=== PATIENT | male | born 1945 | race African-American/Black ===

== ENCOUNTER 2018-10-28 15:08 | Emergency (ER) | payer MEDICARE, OTHER ==
[2018-10-28 15:28] VITALS: BMI 40.3
[2018-10-28] MEDS ORDERED: SODIUM CHLORIDE 0.9% 1000 ML INFUS.BAG IV ONE (16:17)
[2018-10-28] MEDS ORDERED: METOCLOPRAMIDE HCL INJECTION 10 MG/2 ML VIAL IVPB ONE (16:17)
[2018-10-28] MEDS ORDERED: ACETAMINOPHEN 1000 MG/100 ML VIAL (NON FORMULARY) IVPB ONE (16:17)
--- NOTE | 2018-10-28 16:46 | PDOC ---
History of Present Illness - General Chief Complaint: Headache Stated Complaint: HEAD PAIN Time Seen by Provider: 10/28/18 15:40 - History of Present Illness Initial Comments: 10/28/18 16:47 73Y/O M with hx of hypercholesterolemia, HTN, GERD presents to the ED with 1 wk hx of intermittent headache. Pain starts in center of his head and radiates down his left side to his jaw, and to the right to his upper ear. he describes it as throbbing pain/pressure.He denies a hx of stroke in the past or previous hx of CT. Predominant complains are leftsided leg weakness, lightheadedness and increased effort with ambulation He denies any falls, head trauma, loss of consciousness fevers, chiils, blurry vision or hearing changes. Has complaints of post-nasal drip but endorses suffering from allergies and hasn't taken Zyrtec in 2weeks. 10/28/18 18:39 Past History - Past Medical History Allergies/Adverse Reactions: Allergies Allergy/AdvReac Type Severity Reaction Status Date / Time No Known Allergies Allergy Verified 10/28/18 15:24 Home Medications: Ambulatory Orders Aspirin [ASA -] 81 mg PO DAILY 10/28/18 Pantoprazole Sodium 40 mg PO DAILY 10/28/18 Prazosin HCl 1 mg PO DAILY 10/28/18 Rosuvastatin [Crestor -] 20 mg PO HS 10/28/18 Tamsulosin HCl 0.4 mg PO HS 10/28/18 Anemia: No Asthma: No Cancer: No Cardiac Disorders: No CVA: No COPD: No CHF: No Dementia: No Diabetes: No GI Disorders: Yes (GERD) Disorders: Yes (CYST) HTN: Yes Hypercholesterolemia: Yes Liver Disease: No Seizures: No Thyroid Disease: No - Surgical History Orthopedic Surgery: Yes (Right Femur-PINS) - Suicide/Smoking/Psychosocial Hx Smoking Status: No Smoking History: Never smoked Years of Tobacco Use: 0 Have you smoked in the past 12 months: No Number of Cigarettes Smoked Daily: 0 Cigars Per Day: 0 Hx Alcohol Use: Yes (socially) Drug/Substance Use Hx: No Substance Use Type: Alcohol Hx Substance Use Treatment: No Review of Systems - Review of Systems All Other Systems: Reviewed and Negative (see hpi) *Physical Exam - Vital Signs Last Vital Signs Temp Pulse Resp BP Pulse Ox 98.4 F 76 16 149/73 100 07/07/19 15:24 10/28/18 15:24 10/28/18 15:24 10/28/18 15:24 10/28/18 15:24 - Physical Exam General Appearance: Yes: Nourished, Appropriately Dressed. No: Apparent Distress HEENT: positive: EOMI, BONITA, Normal Voice, Hearing Grossly Normal. negative: Photophobia, Sinus Tenderness, Hearing Decreased Respiratory/Chest: positive: Lungs Clear, Normal Breath Sounds. 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 negative: Motor Strength 5/5 (5/5 strength right upper and lower extremity. 4/ 5 strenght left lower extremity), Abnormal Cranial NS, Facial Droop, Numbness, Sensory Deficit, Confused, Depressed Affect ED Treatment Course - LABORATORY CBC & Chemistry Diagram: 10/28/18 16:50 10/28/18 16:50 Medical Decision Making - Medical Decision Making 10/28/18 16:34 73Y/O M with hx of hypercholesterolemia, HTN, GERD presents to the ED with 1 wk hx of intermittent headache. Labs/Imaging NiHSS score: 2 EKG, Head Ct w/o contrast, cardia enzymes, cbc, cmp Tylenol and Reglan for pain Iv normal saline (1000ml) 10/28/18 18:47 Troponin of 0.4. However due to head CT results, transfer to [facility] takes priority head Ct showed subdural hematoma with midline shift. Arranging for transfer to [facility]. Senior resident discussed with Dr. Dietrich at [facility] about transfer. Pt stable for transfer. consent signed. Dr. Dietrich has accepted patient. 10/28/18 19:03 *DC/Admit/Observation/Transfer Diagnosis at time of Disposition: Subdural hematoma - Discharge Dispostion Disposition: TRANSFER ACUTE CARE/OTHER HOSP Condition at time of disposition: Guarded Decision to Admit order: No - Referrals Referrals: Remberto Carney MD [Primary Care Provider] - - Patient Instructions - Post Discharge Activity - Transfer to Acute Care Facility Receiving Facility: [facility]. Accepting Physician:: Dr. Dietrich
[2018-10-28 17:22] LABS: BASO % 1.2 % (0-2.0); HEMATOCRIT 46.5 % (35.4-49); HEMOGLOBIN 14.8 GM/dL (11.7-16.9); LYMPH % 46.8 % (8-40); MCH 28.4 pg (25.7-33.7); MCHC 31.9 g/dl (32.0-35.9); MEAN CELL VOLUME 89.2 fl (80-96); MEAN PLT VOLUME 9.5 fl (7.5-11.1); PLATELET COUNT 180 K/MM3 (134-434); RBC 5.22 M/mm3 (4.00-5.60); RDW 15.1 % (11.9-15.9); WHITE BLOOD COUNT 5.7 K/mm3 (4.0-10.0)
[2018-10-28 17:44] LABS: ALBUMIN 3.8 g/dl (3.4-5.0); BILIRUBIN,TOTAL 0.3 mg/dL (0.2-1); BLOOD UREA NITROGEN 19.1 mg/dL (7-18); CALCIUM 9.5 mg/dL (8.5-10.1); CREATININE 1.2 mg/dL (0.55-1.3); POTASSIUM 4.2 mmol/L (3.5-5.1); TOT PROT 7.7 g/dl (6.4-8.2)
[2018-10-28] MEDS ORDERED: METOCLOPRAMIDE HCL INJECTION 10 MG/2 ML VIAL ONE (17:47)
[2018-10-28] MEDS ORDERED: ACETAMINOPHEN INJECTION 100 ML IVPB ONE (17:47)
--- NOTE | 2018-10-28 17:50 | PDOC ---
Documentation entered by Mikaela Rick SCRIBE, acting as scribe for Bhakti Marr DO. Bhakti Marr DO: This documentation has been prepared by the Prabhjot cason Nirvannie, SCRIBE, under my direction and personally reviewed by me in its entirety. I confirm that the documentation accurately reflects all work, treatment, procedures, and medical decision making performed by me. Attending Attestation - Resident Resident Name: LissettSirisha - ED Attending Attestation I have performed the following: I have examined & evaluated the patient, The case was reviewed & discussed with the resident, I agree w/resident's findings & plan - HPI HPI: 10/28/18 17:12 The patient is a 73 year old male, with a significant past medical history of GERD and HTN, who presents to the emergency department with, 1 week of intermittent headaches and new onset left sided weakness. As per patients daughter at bedside, yesterday she noticed him leaning on his left side. He endorses seasonal allergies which he has been noncompliant with his Zyrtec x2 weeks.He denies any recent chest pain or shortness of breath. Allergies: NKDA Past surgical history: None reported. Social History: Nonsmoker. Denies EtOH use and recreational drug use. Primary Care Physician: Dr. Remberto Carney Urologist: Dr. Danika Carney - Physicial Exam PE: 10/28/18 17:13 Constitutional: Awake, alert, oriented. No acute distress. Head: + Left mastoid tenderness. Normocephalic. Eyes: PERRL. EOMI. Conjunctivae are not pale. ENT: Mucous membranes are moist and intact. Posterior pharynx without exudates or erythema. Uvula midline. Neck: Supple. Full ROM. No lymphadenopathy. Cardiovascular: Regular rate. Regular rhythm. S1, S2 regular. Distal pulses are 2+ and symmetric. Pulmonary/Chest: No evidence of respiratory distress. Clear to auscultation bilaterally No wheezing, rales or rhonchi. Abdominal: Soft and non-distended. There is no tenderness. No rebound, guarding or rigidity. No organomegaly. No palpable masses. Good bowel sounds. Back: No CVA tenderness. Musculoskeletal: No edema. No cyanosis. No clubbing. Full range of motion in all extremities. No calf tenderness. Radial/pedal pulses are intact and 2+ bilaterally Skin: Skin is warm and dry. No petechiae. No purpura. Neurological: Alert and oriented to person, place, and time. Cranial nerves II -XII are grossly intact. Normal speech. Strength is grossly symmetric. No sensory deficits. Psychiatric: Good eye contact. Normal interaction, affect and behavior. - Critical Care Time Total Critical Care Time: 45 Critical Care Statement: The care of this patient involved high complexity decision making to prevent further life threatening deterioration of the patient 's condition and/or to evaluate & treat vital organ system(s) failure or risk of failure. - Medical Decision Making 10/28/18 17:41 I, Dr. Bhakti Marr, DO, attest that this document has been prepared under my direction and personally reviewed by me in its entirety. I further attest, that it accurately reflects all work, treatment, procedures and medical decision -making performed by me. 10/28/18 17:41 a/p: 73yo male with 1 week of headache and L sided weakness -walks leaning to the L, no falls -no focal neuro findings on exam incuding heel/wilks -pt denies cp/sob or fever -feels drainage down his neck and has pain behind his ear - pain over mastoid -will send labs, head ct, temporal bones ct -no frontal or maxillary sinus ttp -will medicate and re-examine 10/28/18 17:[address] on tele monitoring 10/28/18 17:[address] pending, will hold asa pending ct head findings 10/28/18 18:39 pt with subdural hematoma with midline shift on prelim read family and patient updated discussed with Dr. Rizvi who recommends transfer as he will benefit from possible drainage discussed with the family who requests transfer to [facility] pending call back from neurosx 10/28/18 18:46 resident discussed the case with neurosx at [facility] Dr. Gil Heart Score/ECG Review - ECG Intrepretation Comment:: 10/28/18 17:49 sinus at 70, 1st degree av block, t wave inversions III and avf, lateral lead t wave inversions that are unchanged from 2015
[2018-10-28] MEDS ORDERED: METOPROLOL TARTRATE 5 MG/5 ML VIAL IVPUSH ONE (18:37)
[2018-10-28 20:21] VITALS: BP 166/84; PULSE 67
[2018-10-28 20:24] VITALS: TEMP 98.6
[2018-10-28] MEDS ORDERED: morphine CARPU-JECT 2 MG/1 ML DISP.SYRIN IVPUSH ONE (20:32)
[2018-10-28] MEDS ORDERED: MORPHINE SULFATE 2 MG/ML VIAL ONE (20:33)
--- NOTE | 2018-10-29 11:24 | EKG ---
Test Reason : Blood Pressure : / mmHG Vent. Rate : 070 BPM Atrial Rate : 070 BPM P-R Int : 224 ms QRS Dur : 110 ms QT Int : 408 ms P-R-T Axes : 034 -27 -80 degrees QTc Int : 440 ms SINUS RHYTHM WITH 1ST DEGREE A-V BLOCK T WAVE ABNORMALITY, CONSIDER INFEROLATERAL ISCHEMIA ABNORMAL ECG WHEN COMPARED WITH ECG OF 17-FEB-2015 11:01, COMPARED TO EKG NO SIGNIFICANT CHANGE IS FOUND Confirmed by DEB DALE MD ([id number]) on 10/29/2018 11:24:16 AM Referred By: Confirmed By:DEB DALE MD
== END 2018-10-28 20:39 | disposition short-term general hospital (02) ==
LOC: JER 15:08
PROC: 3E0337Z Introduction of Electrolytic and Water Balance Substance into Peripheral Vein, Percutaneous Approach (ICD-10-PCS; principal; 2018-10-28)
PROC: 3E033GC Introduction of Other Therapeutic Substance into Peripheral Vein, Percutaneous Approach (ICD-10-PCS; 2018-10-28)
PROC: 3E033NZ Introduction of Analgesics, Hypnotics, Sedatives into Peripheral Vein, Percutaneous Approach (ICD-10-PCS; 2018-10-28)
DX: S06.5X9A Traumatic subdural hemorrhage with loss of consciousness of unspecified duration, initial encounter (principal); X58.XXXA Exposure to other specified factors, initial encounter; Y93.89 Activity, other specified; Y92.89 Other specified places as the place of occurrence of the external cause; I10 Essential (primary) hypertension; E78.00 Pure hypercholesterolemia, unspecified
CPT/HCPCS: 36415; 70450-TC; 70480-TC; 80053; 82550; 82553; 84484; 85025; 93005; 93010; 96374; 96375; 99284-25; J0131; J7030

== ENCOUNTER 2020-07-31 04:46 | Day surgery (SDC) | payer BC, OTHER ==
[2020-07-28 16:45] VITALS: BMI 36.4
[~2020-07-31 04:46] MED LIST: ceFAZolin SODIUM 1 GM VIAL IVPB ONE
[2020-07-31] MEDS ORDERED: PROPOFOL 20 ML ONE (11:47)
[2020-07-31] MEDS ORDERED: ceFAZolin SODIUM 1 GM VIAL IVPB ONE (12:45)
[2020-07-31] MEDS ORDERED: ceFAZolin SODIUM 1 GM VIAL ONE ×2 (12:46)
[2020-07-31] MEDS ORDERED: ZOLPIDEM TARTRATE 5 MG TABLET PO PRN (13:57)
[2020-07-31] MEDS ORDERED: ACETAMINOPHEN 325 MG TABLET (FP) PO PRN (13:57)
[2020-07-31] MEDS ORDERED: TAMSULOSIN HCL 0.4 MG CAP PO ONE ×2 (13:57→22:00)
[2020-07-31] MEDS ORDERED: CEPHALEXIN MONOHYDRATE 500 MG CAPSULE (UD) PO SCH (14:00)
[2020-07-31] MEDS ORDERED: oxyCODONE HCL 5 MG TABLET PO PRN ×2 (14:01→14:13)
[2020-07-31] MEDS ORDERED: ONDANSETRON 4 MG/2 ML VIAL IVPUSH PRN (14:01)
[2020-07-31] MEDS ORDERED: LACTATED RINGERS SOLUTION 1,000 ML IV SCH (14:15)
[2020-07-31] MEDS: DEXTROSE 5%-0.45% SALINE 1,000 ML IV SCH (19:09)
[2020-07-31] MEDS: ACETAMINOPHEN 325 MG TABLET (FP) PO PRN (20:51)
[2020-07-31] MEDS ORDERED: ROSUVASTATIN CA 20 MG TABLET (FP) PO SCH (22:00)
[2020-08-01] MEDS: ACETAMINOPHEN 325 MG TABLET (FP) PO PRN (01:35)
[2020-08-01] MEDS ORDERED: TRIMETHOBENZAMIDE HCL 200MG/2ML INJ IM ONE (01:55)
[2020-08-01] MEDS: DEXTROSE 5%-0.45% SALINE 1,000 ML IV SCH (07:03)
[2020-08-01] MEDS ORDERED: PT OWN MED DRAWER 7, Y5N ONE ×2 (07:40→11:35)
[2020-08-01] MEDS: CEPHALEXIN MONOHYDRATE 500 MG CAPSULE (UD) PO SCH ×2 (07:49→13:16)
[2020-08-01] MEDS ORDERED: LOSARTAN 50MG/HCTZ 12.5MG 1 TAB PO SCH (10:00)
[2020-08-01] MEDS ORDERED: PANTOPRAZOLE 40 MG TABLET PO SCH (10:00)
[2020-08-01 13:36] VITALS: BP 127/57; PULSE 104; TEMP 99.4
== END 2020-08-01 13:53 | disposition home or self-care (01) ==
LOC: JASUSAT 04:46 → JASU-SURG 04:46 → J5S 18:28 → JASUSAT 08-01 13:53
PROVIDERS: ATTEND Urology
PROC: 0VT08ZZ Resection of Prostate, Via Natural or Artificial Opening Endoscopic (ICD-10-PCS; principal; 2020-07-31 11:00)
DX: N40.1 Benign prostatic hyperplasia with lower urinary tract symptoms (principal); N32.89 Other specified disorders of bladder; N13.8 Other obstructive and reflux uropathy; R35.0 Frequency of micturition; R39.15 Urgency of urination
CPT/HCPCS: 87086; 88108; 88305-TC; 94760

== ENCOUNTER 2021-11-01 07:43 | Inpatient (IN) | payer BC, OTHER ==
[2021-11-01 09:10] LABS: VENOUS O2 SATURATION 90.8 % (70-80); VENOUS PCO2 43.4 mmHg (38-52); VENOUS PH 7.453 (7.310-7.410)
[2021-11-01 09:23] LABS: EPI CELLS 23 /uL (0-25.1); HYALINE CASTS 4 /uL (0-3.1); URINE APPEARANCE CLEAR; URINE BACTERIA 5 /uL (0-1359); URINE BILIRUBIN NEGATIVE (NEGATIVE); URINE COLOR YELLOW; URINE GLUCOSE (UA) 3+ (NEGATIVE); URINE KETONE TRACE (NEGATIVE); URINE LEUK ESTERASE 1+ (NEGATIVE); URINE NITRITE NEGATIVE (NEGATIVE); URINE PROTEIN 1+ (NEGATIVE); URINE UROBILINOGEN 0.2 mg/dL (0.2-1.0); URINE WBC 452 /uL (0-25.8)
[2021-11-01 09:25] LABS: BASO % 0.4 % (0-2.0); EOS % 0.1 % (0-4.5); HEMATOCRIT 47.8 % (35.4-49); HEMOGLOBIN 15.6 GM/dL (11.7-16.9); LYMPH % 10.1 % (8-40); MCH 28.4 pg (25.7-33.7); MCHC 32.7 g/dl (32.0-35.9); MEAN CELL VOLUME 86.9 fl (80-96); MEAN PLT VOLUME 8.8 fl (7.5-11.1); MONO % 7.8 % (3.8-10.2); NEUT % 81.6 % (42.8-82.8); PLATELET COUNT 132 10^3/uL (134-434); RBC 5.49 M/mm3 (4.00-5.60); RDW 15.9 % (11.9-15.9); WHITE BLOOD COUNT 6.9 K/mm3 (4.0-10.0)
[2021-11-01 09:35] LABS: INR 1.19 (0.83-1.09); PROTHROMBIN TIME (PATIENT) 13.7 SEC (9.7-13.0)
[2021-11-01 09:38] LABS: ACTIVATED PTT 28.6 SECONDS (25.2-36.5)
[2021-11-01 09:44] LABS: CHLORIDE 98 mmol/L (98-107); SODIUM 136 mmol/L (136-145)
[2021-11-01 09:48] LABS: CALCIUM 8.6 mg/dL (8.5-10.1); CO2 29 mmol/L (21-32); GLUCOSE,RANDOM 148 mg/dL (74-106)
[2021-11-01 09:51] LABS: CREATININE 1.4 mg/dL (0.55-1.3); SGOT/AST 39 U/L (15-37); SGPT/ALT 40 U/L (13-61)
[2021-11-01 09:52] LABS: BILIRUBIN,TOTAL 0.7 mg/dL (0.2-1)
[2021-11-01 09:53] LABS: ALK PHOS 68 U/L (45-117)
[2021-11-01 10:13] LABS: ANION GAP 9 MMOL/L (8-16)
[2021-11-01 10:19] LABS: URINE RBC 352.6 /uL (0-23.9); YEAST NEGATIVE (NEGATIVE)
[2021-11-01] MEDS ORDERED: POTASSIUM CHLORIDE ORAL LIQUID 20 MEQ/15 ML PO ONE (10:38)
[2021-11-01] MEDS ORDERED: KCL 10 MEQ IVPB 10 MEQ/100 ML INFUS.BAG IVPB SCH (10:45)
[2021-11-01] MEDS ORDERED: POTASSIUM CHLORIDE ORAL LIQUID 20 MEQ/15 ML ONE (10:48)
[2021-11-01] MEDS ORDERED: CEFTRIAXONE 1 GM in DEXTROSE 5%-WATER - 50 ML IVPB ONE (17:30)
[2021-11-01] MEDS ORDERED: CEFTRIAXONE 1 GM/50 ML BAG ONE (18:05)
[2021-11-01] MEDS: ROSUVASTATIN CA 20 MG TABLET PO SCH (21:50)
[2021-11-01] MEDS: HEPARIN NA (PORCINE) 5,000 UNITS/ML 1ML VIAL SQ SCH (21:50)
[2021-11-01 22:11] LABS: CHLORIDE 102 mmol/L (98-107); SODIUM 140 mmol/L (136-145)
[2021-11-01 22:13] LABS: ANION GAP 7 MMOL/L (8-16); BLOOD UREA NITROGEN 18.4 mg/dL (7-18); CALCIUM 8.3 mg/dL (8.5-10.1); CO2 31 mmol/L (21-32); GLUCOSE,RANDOM 141 mg/dL (74-106)
[2021-11-01 22:16] LABS: CREATININE 1.2 mg/dL (0.55-1.3)
[2021-11-01] MEDS: ACETAMINOPHEN 325 MG TABLET (FP) PO PRN (22:59)
[2021-11-01] MEDS: ASPIRIN COATED 81 MG TABLET.EC PO SCH (22:59)
[2021-11-02 04:05] VITALS: BMI 37.9
[2021-11-02] MEDS: ACETAMINOPHEN 325 MG TABLET (FP) PO PRN (06:02)
[2021-11-02 09:21] LABS: BASO % 0.5 % (0-2.0); EOS % 0.2 % (0-4.5); HEMATOCRIT 46.6 % (35.4-49); HEMOGLOBIN 15.3 GM/dL (11.7-16.9); LYMPH % 17.3 % (8-40); MCH 28.3 pg (25.7-33.7); MCHC 32.9 g/dl (32.0-35.9); MEAN CELL VOLUME 86.1 fl (80-96); MEAN PLT VOLUME 8.5 fl (7.5-11.1); MONO % 12.7 % (3.8-10.2); NEUT % 69.3 % (42.8-82.8); PLATELET COUNT 147 10^3/uL (134-434); RBC 5.41 M/mm3 (4.00-5.60); RDW 15.9 % (11.9-15.9); WHITE BLOOD COUNT 6.4 K/mm3 (4.0-10.0)
[2021-11-02] MEDS: ASPIRIN COATED 81 MG TABLET.EC PO SCH (09:27)
[2021-11-02] MEDS: LOSARTAN POTASSIUM 25 MG TABLET PO SCH (09:27)
[2021-11-02] MEDS: TAMSULOSIN HCL 0.4 MG CAP PO SCH (09:27)
[2021-11-02] MEDS: HEPARIN NA (PORCINE) 5,000 UNITS/ML 1ML VIAL SQ SCH ×2 (09:27→21:16)
[2021-11-02] MEDS: PANTOPRAZOLE 40 MG TABLET PO SCH (09:27)
[2021-11-02 09:53] LABS: ALBUMIN 2.9 g/dl (3.4-5.0); BLOOD UREA NITROGEN 17.2 mg/dL (7-18)
[2021-11-02 09:55] LABS: BILIRUBIN,TOTAL 0.8 mg/dL (0.2-1); TOT PROT 6.9 g/dl (6.4-8.2)
[2021-11-02 09:57] LABS: CALCIUM 8.4 mg/dL (8.5-10.1); CREATININE 1.1 mg/dL (0.55-1.3)
[2021-11-02] MEDS ORDERED: PNEUMOC 20-VAL CONJ-DIP CRM/PF 0.5 ML SYRINGE IM ONE (10:00)
[2021-11-02 13:38] LABS: MAGNESIUM 2.2 mg/dL (1.8-2.4)
[2021-11-02] MEDS ORDERED: POTASSIUM CHLORIDE TABS 20 MEQ TABLET.ER (FP) PO ONE (13:46)
[2021-11-02 14:02] LABS: PHOSPHOROUS 2.4 mg/dL (2.5-4.9)
[2021-11-02 14:07] LABS: N-TERMINAL BNP 384.9 pg/ml (5-450)
[2021-11-02] MEDS ORDERED: DEXTROSE 5%-WATER - 50 ML IVPB ONE (17:02)
[2021-11-02] MEDS ORDERED: PIPERACILLIN/TAZOBACTAM 3.375 GM VIAL IVPB ONE (17:02)
[2021-11-02] MEDS: PIPERACILLIN/TAZOB 3.375 GM 3.375 GM in DEXTROSE 5%-WATER - 50 ML IVPB SCH (17:14)
[2021-11-02] MEDS: ROSUVASTATIN CA 20 MG TABLET PO SCH (21:16)
[2021-11-03] MEDS ORDERED: PIPERACILLIN/TAZOBACTAM 3.375 GM VIAL IVPB ONE ×3 (00:54→17:35)
[2021-11-03] MEDS ORDERED: DEXTROSE 5%-WATER - 50 ML IVPB ONE ×3 (00:54→17:35)
[2021-11-03] MEDS: ACETAMINOPHEN 325 MG TABLET (FP) PO PRN (01:02)
[2021-11-03] MEDS: PIPERACILLIN/TAZOB 3.375 GM 3.375 GM in DEXTROSE 5%-WATER - 50 ML IVPB SCH ×3 (01:15→17:37)
[2021-11-03 08:46] LABS: BASO % 0.4 % (0-2.0); EOS % 2.1 % (0-4.5); HEMATOCRIT 48.1 % (35.4-49); HEMOGLOBIN 15.4 GM/dL (11.7-16.9); LYMPH % 27.4 % (8-40); MCH 28.1 pg (25.7-33.7); MCHC 32.1 g/dl (32.0-35.9); MEAN CELL VOLUME 87.4 fl (80-96); MEAN PLT VOLUME 8.6 fl (7.5-11.1); MONO % 14.2 % (3.8-10.2); NEUT % 55.9 % (42.8-82.8); PLATELET COUNT 155 10^3/uL (134-434); RDW 15.8 % (11.9-15.9)
[2021-11-03] MEDS: TAMSULOSIN HCL 0.4 MG CAP PO SCH (09:21)
[2021-11-03] MEDS: PANTOPRAZOLE 40 MG TABLET PO SCH (09:21)
[2021-11-03] MEDS: LOSARTAN POTASSIUM 25 MG TABLET PO SCH (09:21)
[2021-11-03] MEDS: HEPARIN NA (PORCINE) 5,000 UNITS/ML 1ML VIAL SQ SCH ×2 (09:21→21:26)
[2021-11-03] MEDS: ASPIRIN COATED 81 MG TABLET.EC PO SCH (09:21)
[2021-11-03 10:00] LABS: BILIRUBIN,TOTAL 0.5 mg/dL (0.2-1); CREATININE 1.1 mg/dL (0.55-1.3)
[2021-11-03 10:02] LABS: TOT PROT 7.1 g/dl (6.4-8.2)
[2021-11-03 10:03] LABS: ALBUMIN 2.9 g/dl (3.4-5.0); BLOOD UREA NITROGEN 13.3 mg/dL (7-18); CALCIUM 8.6 mg/dL (8.5-10.1)
[2021-11-03] MEDS: ROSUVASTATIN CA 20 MG TABLET PO SCH (21:26)
[2021-11-03] MEDS ORDERED: POTASSIUM CHLORIDE TABS 20 MEQ TABLET.ER (FP) PO ONE (22:12)
[2021-11-04] MEDS ORDERED: PIPERACILLIN/TAZOBACTAM 3.375 GM VIAL IVPB ONE ×3 (00:22→18:46)
[2021-11-04] MEDS ORDERED: DEXTROSE 5%-WATER - 50 ML IVPB ONE ×3 (00:23→18:46)
[2021-11-04] MEDS: PIPERACILLIN/TAZOB 3.375 GM 3.375 GM in DEXTROSE 5%-WATER - 50 ML IVPB SCH ×3 (01:58→18:48)
[2021-11-04] MEDS: TAMSULOSIN HCL 0.4 MG CAP PO SCH (09:01)
[2021-11-04 10:01] LABS: ALBUMIN 2.8 g/dl (3.4-5.0); BLOOD UREA NITROGEN 13.6 mg/dL (7-18); CALCIUM 8.7 mg/dL (8.5-10.1)
[2021-11-04 10:03] LABS: CREATININE 0.9 mg/dL (0.55-1.3)
[2021-11-04 10:05] LABS: BILIRUBIN,TOTAL 0.5 mg/dL (0.2-1)
[2021-11-04] MEDS: HEPARIN NA (PORCINE) 5,000 UNITS/ML 1ML VIAL SQ SCH ×2 (10:43→21:36)
[2021-11-04] MEDS: PANTOPRAZOLE 40 MG TABLET PO SCH (10:44)
[2021-11-04] MEDS: ASPIRIN COATED 81 MG TABLET.EC PO SCH (10:44)
[2021-11-04] MEDS: LOSARTAN POTASSIUM 25 MG TABLET PO SCH (10:44)
[2021-11-04] MEDS: ACETAMINOPHEN 325 MG TABLET (FP) PO PRN (21:35)
[2021-11-04] MEDS: ROSUVASTATIN CA 20 MG TABLET PO SCH (21:36)
[2021-11-05] MEDS ORDERED: DEXTROSE 5%-WATER - 50 ML IVPB ONE ×3 (02:44→17:03)
[2021-11-05] MEDS ORDERED: PIPERACILLIN/TAZOBACTAM 3.375 GM VIAL IVPB ONE ×3 (02:44→17:03)
[2021-11-05] MEDS: PIPERACILLIN/TAZOB 3.375 GM 3.375 GM in DEXTROSE 5%-WATER - 50 ML IVPB SCH ×3 (02:59→17:05)
[2021-11-05] MEDS: TAMSULOSIN HCL 0.4 MG CAP PO SCH (11:56)
[2021-11-05] MEDS: ASPIRIN COATED 81 MG TABLET.EC PO SCH (11:56)
[2021-11-05] MEDS: LOSARTAN POTASSIUM 25 MG TABLET PO SCH (11:56)
[2021-11-05] MEDS: PANTOPRAZOLE 40 MG TABLET PO SCH (11:56)
[2021-11-05] MEDS: HEPARIN NA (PORCINE) 5,000 UNITS/ML 1ML VIAL SQ SCH ×2 (11:57→21:35)
[2021-11-05] MEDS: ROSUVASTATIN CA 20 MG TABLET PO SCH (21:35)
[2021-11-06] MEDS ORDERED: DEXTROSE 5%-WATER - 50 ML IVPB ONE ×2 (01:20→09:49)
[2021-11-06] MEDS ORDERED: PIPERACILLIN/TAZOBACTAM 3.375 GM VIAL IVPB ONE ×2 (01:20→09:49)
[2021-11-06] MEDS: PIPERACILLIN/TAZOB 3.375 GM 3.375 GM in DEXTROSE 5%-WATER - 50 ML IVPB SCH ×2 (02:18→10:14)
[2021-11-06] MEDS: ACETAMINOPHEN 325 MG TABLET (FP) PO PRN (02:22)
[2021-11-06] MEDS: TAMSULOSIN HCL 0.4 MG CAP PO SCH (09:27)
[2021-11-06] MEDS: PANTOPRAZOLE 40 MG TABLET PO SCH (09:28)
[2021-11-06] MEDS: ASPIRIN COATED 81 MG TABLET.EC PO SCH (09:28)
[2021-11-06] MEDS: HEPARIN NA (PORCINE) 5,000 UNITS/ML 1ML VIAL SQ SCH (09:28)
[2021-11-06] MEDS ORDERED: LOSARTAN POTASSIUM 50 MG TABLET PO SCH (10:00)
[2021-11-06 10:27] LABS: HEMATOCRIT 45.7 % (35.4-49); HEMOGLOBIN 14.8 GM/dL (11.7-16.9); MCH 28.2 pg (25.7-33.7); MCHC 32.4 g/dl (32.0-35.9); MEAN CELL VOLUME 86.9 fl (80-96); MEAN PLT VOLUME 8.2 fl (7.5-11.1); PLATELET COUNT 271 10^3/uL (134-434); RBC 5.25 M/mm3 (4.00-5.60); RDW 15.9 % (11.9-15.9); WHITE BLOOD COUNT 6.2 K/mm3 (4.0-10.0)
[2021-11-06 11:09] LABS: ALBUMIN 2.7 g/dl (3.4-5.0); BLOOD UREA NITROGEN 13.6 mg/dL (7-18); CALCIUM 8.8 mg/dL (8.5-10.1)
[2021-11-06 11:13] LABS: BILIRUBIN,TOTAL 0.3 mg/dL (0.2-1); TOT PROT 6.8 g/dl (6.4-8.2)
[2021-11-06 11:25] LABS: ANISOCYTOSIS 0; MACROCYTOSIS 0
[2021-11-06 14:03] VITALS: BP 156/82; PULSE 65; TEMP 98.4
[2021-11-06] MEDS ORDERED: AMOX TR/POT CLAV 875MG/125MG TABLETS (FP) PO SCH (17:30)
== END 2021-11-06 18:15 | disposition home or self-care (01) | DRG 698 ==
LOC: JER 07:43 → JERBED 11:08 → J4S 20:46
PROVIDERS: ADMIT Internal Medicine; ATTEND Internal Medicine
DX: N99.89 Other postprocedural complications and disorders of genitourinary system (principal); A41.9 Sepsis, unspecified organism; T81.44XA Sepsis following a procedure, initial encounter; N39.0 Urinary tract infection, site not specified; I24.8 Other forms of acute ischemic heart disease; I10 Essential (primary) hypertension; K21.9 Gastro-esophageal reflux disease without esophagitis; E87.6 Hypokalemia; J45.909 Unspecified asthma, uncomplicated; E78.5 Hyperlipidemia, unspecified; N40.0 Benign prostatic hyperplasia without lower urinary tract symptoms; E66.9 Obesity, unspecified; Z68.37 Body mass index [BMI] 37.0-37.9, adult; Y83.9 Surgical procedure, unspecified as the cause of abnormal reaction of the patient, or of later complication, without mention of misadventure at the time of the procedure
CPT/HCPCS: 36415; 71045-TC-FY; 80048; 80053; 80061; 81003; 82550; 82553; 82803; 82962; 83036; 83605; 83735; 83880; 84100; 84443; 84484; 85025; 85610; 85730; 87040; 87086; 90677; 93005; 93010; 93306-TC; 99285-25; C9803-CS; J1644; U0003; U0005

== ENCOUNTER 2024-01-29 15:10 | Emergency (ER) | payer OTHER, BC ==
[2024-01-29 15:21] VITALS: BP 158/60; PULSE 62; RESP 19; TEMP 97.8; BMI 36.4
[2024-01-29] MEDS ORDERED: CYCLOBENZAPRINE HCL 5 MG TABLET ONE (16:03)
[2024-01-29] MEDS ORDERED: ACETAMINOPHEN 325 MG TABLET (FP) ONE (16:03)
[2024-01-29] MEDS ORDERED: predniSONE 20 MG TABLET (UD) ONE (16:03)
[2024-01-29] MEDS: CYCLOBENZAPRINE HCL 10 MG TABLET (FP) PO ONE (16:09)
[2024-01-29] MEDS: predniSONE 20 MG TABLET (UD) PO ONE (16:09)
[2024-01-29] MEDS: ACETAMINOPHEN 325 MG TABLET (FP) PO ONE (16:09)
== END 2024-01-29 17:18 | disposition home or self-care (01) ==
LOC: JERFT 15:10
DX: M54.41 Lumbago with sciatica, right side (principal); M25.551 Pain in right hip
CPT/HCPCS: 73502-TC-RT-FY; 73552-TC-RT-FY; 99284-25